=== PATIENT | female | born 2000 | race American Indian/Alaskan Native ===

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

== ENCOUNTER 2021-06-12 01:22 | Emergency (ER) | payer MEDICAID ==
[2021-06-12 01:46] VITALS: BP 100/72
--- NOTE | 2021-06-12 03:19 | Emergency Department Report ---
ED General Adult HPI - General Chief complaint: Anxiety Stated complaint: ANXIETY Time Seen by Provider: 06/12/21 03:13 Source: EMS Mode of arrival: Ambulatory Limitations: No Limitations - History of Present Illness Initial comments: Patient presents via EMS as an anxiety call. Patient states sore throat and congestion with provider tonight. Patient is alert, oriented x3, patient appears with no acute distress, she appears well-hydrated, well-nourished, and developmentally appropriate. Mentation is appropriate. She denies SI or HI. requesting to talk to psychiatry, Patient is tolerating p.o. intake without symptoms. There is been no fevers or chills. Patient does not have a primary care doctor patient is not seeing psychiatry or psychology. Patient unsure of psych diagnosis. - Related Data Previous Rx's Medication Instructions Recorded Last Taken Type Azithromycin 1,000 mg PO ONCE #2 tablet 08/23/20 Unknown Rx Terconazole [Terazol 7] 1 applic VG QHS #7 cream.appl 08/23/20 Unknown Rx metroNIDAZOLE [Flagyl TAB] 250 mg PO Q8HR 7 Days #21 tablet 08/23/20 Unknown Rx hydrOXYzine HCL [Atarax] 25 mg PO Q6HR PRN #12 tablet 06/12/21 Unknown Rx Allergies Allergy/AdvReac Type Severity Reaction Status Date / Time No Known Allergies Allergy Verified 06/12/21 01:40 ED Review of Systems ROS: Stated complaint: ANXIETY Other details as noted in HPI Constitutional: malaise. denies: chills, fever Eyes: denies: eye pain, eye discharge, vision change ENT: throat pain. denies: ear pain, dental pain, congestion Respiratory: no symptoms reported Cardiovascular: denies: chest pain, palpitations Endocrine: no symptoms reported Gastrointestinal: denies: abdominal pain, nausea, diarrhea Genitourinary: denies: urgency, dysuria, discharge Musculoskeletal: denies: back pain, joint swelling, arthralgia Skin: denies: rash, lesions Neurological: denies: headache, weakness, paresthesias Psychiatric: denies: anxiety, depression Hematological/Lymphatic: denies: easy bleeding, easy bruising ED Past Medical Hx - Past Medical History Previous Medical History?: Yes Additional medical history: nightmares. mood swings - Surgical History Past Surgical History?: No Hx Coronary Stent: No Hx Open Heart Surgery: No Hx Pacemaker: No Hx Internal Defibrillator: No Hx Cholecystectomy: No Hx Appendectomy: No Hx Breast Surgery: No - Social History Smoking Status: Never Smoker Substance Use Type: None - Medications Home Medications: Home Medications Medication Instructions Recorded Confirmed Last Taken Type Azithromycin 1,000 mg PO ONCE #2 tablet 08/23/20 Unknown Rx Terconazole [Terazol 7] 1 applic VG QHS #7 cream.appl 08/23/20 Unknown Rx metroNIDAZOLE [Flagyl TAB] 250 mg PO Q8HR 7 Days #21 tablet 08/23/20 Unknown Rx hydrOXYzine HCL [Atarax] 25 mg PO Q6HR PRN #12 tablet 06/12/21 Unknown Rx ED Physical Exam - General Limitations: No Limitations General appearance: alert, in no apparent distress - Head Head exam: Present: atraumatic, normal inspection - Eye Eye exam: Present: normal appearance, PERRL, EOMI Pupils: Present: normal accommodation - ENT ENT exam: Present: normal orophraynx, mucous membranes moist, TM's normal bilaterally, normal external ear exam - Expanded ENT Exam Expanded Ear exam: Present: normal external inspection Mouth exam: Present: normal external inspection. Absent: trismus, muffled voice, laceration Teeth exam: Present: normal inspection Throat exam: Positive: normal inspection. Negative: tonsillar erythema, tonsillomegaly, tonsillar exudate, R peritonsillar mass, L peritonsillar mass - Neck Neck exam: Present: normal inspection, full ROM. Absent: tenderness, meningismus, lymphadenopathy, thyromegaly - Respiratory Respiratory exam: Present: normal lung sounds bilaterally. Absent: respiratory distress, wheezes, stridor, chest wall tenderness - Cardiovascular Cardiovascular Exam: Present: regular rate, normal rhythm. Absent: systolic murmur, diastolic murmur, rubs, gallop - GI/Abdominal GI/Abdominal exam: Present: soft, normal bowel sounds. Absent: distended, tenderness, bruit, hernia - Rectal Rectal exam: Present: deferred - External exam: Present: other (deferred) - Extremities Exam Extremities exam: Present: normal inspection, full ROM, normal capillary refill. Absent: tenderness - Back Exam Back exam: Present: normal inspection, full ROM. Absent: CVA tenderness (R), CVA tenderness (L), vertebral tenderness - Neurological Exam Neurological exam: Present: alert, oriented X3, CN II-XII intact, normal gait, reflexes normal. Absent: motor sensory deficit - Psychiatric Psychiatric exam: Present: normal affect, normal mood - Skin Skin exam: Present: warm, dry, intact, normal color. Absent: rash ED Course Vital Signs 06/12/21 01:45 Temperature 98.4 F Pulse Rate 104 H Respiratory 16 Rate Blood Pressure 100/72 [Left] O2 Sat by Pulse 98 Oximetry ED Medical Decision Making - Lab Data Result diagrams: 06/12/21 03:43 06/12/21 03:43 Critical care attestation.: If time is entered above; I have spent that time in minutes in the direct care of this critically ill patient, excluding procedure time. ED Disposition Clinical Impression: Stress Depression Qualifiers: Depression Type: other depression Qualified Code(s): F32.89 - Other specified depressive episodes Disposition: 01 HOME / SELF CARE / HOMELESS Is pt being admited?: No Does the pt Need Aspirin: No Condition: Stable Additional Instructions: Follow-up with mental health department as directed. Return to emergency should symptoms worsen. Prescriptions: hydrOXYzine HCL [Atarax] 25 mg PO Q6HR PRN #12 tablet PRN Reason: Itching Referrals: [facility] [Outside] - 3-5 Days Forms: Work/School Release Form(ED)
[2021-06-12 04:12] LABS: Hematocrit 32.6 % (30.3-42.9); Hemoglobin 10.3 gm/dl (10.1-14.3); Mean Corpuscular HGB Conc 32 % (30-34); Mean Corpuscular Volume 76 fl (79-97); Platelet Count 155 K/mm3 (140-440); Red Blood Count 4.28 M/mm3 (3.65-5.03); Red Cell Distribution Width 18.7 % (13.2-15.2)
[2021-06-12 04:30] LABS: BUN/Creatinine Ratio 15; Blood Urea Nitrogen 9 mg/dL (7-17); Calcium 8.5 mg/dL (8.4-10.2); Hemolysis Index 4
[2021-06-12 04:58] LABS: Anisocytosis RARE; Total Cells Counted 100
[2021-06-12 04:59] LABS: Hypochromasia 1+
--- NOTE | 2021-06-12 13:14 | Consultation ---
History of Present Illness - Reason for Consult Consult date: 06/12/21 Reason for consult: Mental health evaluation - History of Present Psychiatric Illness ED Note: Patient presents via EMS as an anxiety call. Patient states sore throat and congestion with provider tonight. Patient is alert, oriented x3, patient appears with no acute distress, she appears well-hydrated, well- nourished, and developmentally appropriate. Mentation is appropriate. She denies SI or HI. requesting to talk to psychiatry, Patient is tolerating p.o. intake without symptoms. There is been no fevers or chills. Patient does not have a primary care doctor patient is not seeing psychiatry or psychology. Patient unsure of psych diagnosis. Adams Urrutia is a 20 year old female with history of depression and anxiety. In my interview with the patient, she is marilyn and oriented. The patient states she restarted her medications (Abilify and Prazosin) 2 days ago and started having hot flashes. The patient denies any current suicidal/homicidal ideation and denies hallucinations. PAST PSYCHIATRIC HISTORY Diagnoses: Anxiety, Depression Suicide attempts or Self-harm behavior: Denies Prior psychiatric hospitalizations: Yes Substance Abuse history: Denies Previous psychiatric medications tried: Abilify, Prazosin Outpatient treatment: Denies PAST MEDICAL HISTORY: Family Psychiatric History: None reported or documented SOCIAL HISTORY Marital Status: Single Living Arrangements:Lives with God mother Employment Status: employed Access to guns/weapons:Denies Education: [employer] History of Abuse: Denies Legal History: Unknown REVIEW OF SYSTEMS Constitutional: Negative for weight loss ENT: Negative for stridor Respiratory: Negative for cough or hemoptysis All other systems reviewed and are negative MENTAL STATUS EXAMINATION General Appearance and Behavior: Age appropriate, good hygiene, wearing appropriate clothes, good eye contact, cooperative with questioning Cooperation: Participating/engaged Psychomotor Behavior: unremarkable and within normal limits Mood:Ok Affect and affective range: congruent with mood Thought Process:Goal directed Thought Content: Not Suicidal Speech: Normal volume, Regular rate and rhythm. Intellectual Functioning: Average Suicidal Ideation: Denies Homicidal Ideation: Denies Hallucinations: Denies Delusions: None elicited Impulse Control: Limited Insight and Judgment: limited insight and fair judgment Memory: Normal Attention: Normal Orientation: Alert, oriented. Assessment and Plan (1) major depressive disorder Current Visit: No Status: Acute RECOMMENDATIONS Risks, benefits and alternatives of medications discussed with the patient, questions answered and consent obtained from patient. PSYCHOTHERAPY: Supportive psychotherapy provided MEDICAL: Per primary team DELIRIUM PRECAUTIONS: Please re-orient patient frequently, keep lights on during the day, and minimize benzodiazepines and opiates as these medications could worsen patient's confusion. NATURAL G[employer] BASIS TRADER: non indicated DISPOSITION: Do not recommend acute inpatient psychiatric hospitalization at this time. [facility] will provide patient with outpatient psychiatric resources. FOLLOW-UP: Will sign off. Thank you for the consult. Please contact with any questions and/or concerns. Medications and Allergies Allergies Medications and Allergies Allergies Allergy/AdvReac Type Severity Reaction Status Date / Time No Known Allergies Allergy Verified 06/12/21 01:40 Home Medications Medication Instructions Recorded Confirmed Last Taken Type Azithromycin 1,000 mg PO ONCE #2 tablet 08/23/20 Unknown Rx Terconazole [Terazol 7] 1 applic VG QHS #7 cream.appl 08/23/20 Unknown Rx metroNIDAZOLE [Flagyl TAB] 250 mg PO Q8HR 7 Days #21 tablet 08/23/20 Unknown Rx hydrOXYzine HCL [Atarax] 25 mg PO Q6HR PRN #12 tablet 06/12/21 Unknown Rx Mental Status Exam - Vital signs Last Vital Signs Temp 98.4 F 06/12/21 01:45 Pulse 104 H 06/12/21 01:45 Resp 16 06/12/21 01:45 BP 100/72 06/12/21 01:45 Pulse Ox 98 06/12/21 01:45 Results Result Diagrams: 06/12/21 03:43 06/12/21 03:43 Abnormal lab results 06/12/21 06/12/21 Range/Units 03:43 03:43 MCV 76 L (79-97) fl MCH 24 L (28-32) pg RDW 18.7 H (13.2-15.2) % Lymphocytes % (Manual) 39.0 H (13.4-35.0) % Monocytes % (Manual) 8.0 H (0.0-7.3) % Carbon Dioxide 21 L (22-30) mmol/L All other labs normal.
== END 2021-06-12 14:11 | disposition left against medical advice (07) ==
LOC: ED 01:22
DX: F43.9 Reaction to severe stress, unspecified (principal); F32.9 Major depressive disorder, single episode, unspecified; Z79.899 Other long term (current) drug therapy
CPT/HCPCS: 36415; 80048; 85007; 85025; 99283